=== PATIENT | male | born 1960 | race Caucasian/White ===

== ENCOUNTER 2019-10-27 14:07 | Observation (INO) ==
[2019-10-27] MEDS ORDERED: ALBUT/IPRATROP 3MG/0.5MG NEB 3 ML VIAL NEB STA ×2 (14:37→18:02)
--- NOTE | 2019-10-27 14:48 | Emergency Department Note ---
History of Present Illness General Chief complaint: Leg Injury/Pain Stated complaint: SORES ON LEGS Time Seen by Provider: 10/27/19 14:14 History of Present Illness This patient is a pleasant 59-year-old male who presents the emergency department ambulatory with his daughter for evaluation of lower extremity swe lling and wounds to the left leg. His symptoms have been going on for over a month. He denies any shortness of breath. No fever. The patient was reportedly treated at [facility] with oral and IV antibiotics over the last month. He has not seen an improvement. He has stopped wearing his compression stockings because of the wounds. He reports mild pain with weight bearing Home Medications Home Medications Medication Instructions Recorded Confirmed Type buprenorphine-naloxone [Suboxone] 1 dose SUBLINGUAL BID 06/19/18 10/27/19 History fenofibrate nanocrystallized 145 mg PO DAILY 06/19/18 10/27/19 History [Tricor] meloxicam [Mobic] 15 mg PO DAILY 06/19/18 10/27/19 History potassium chloride 10 meq PO DAILY 06/19/18 10/27/19 History venlafaxine [Effexor XR] 150 mg PO DAILY 06/19/18 10/27/19 History cyanocobalamin (vitamin B-12) 500 mcg PO DAILY 10/27/19 10/27/19 History [Vitamin B-12] lisinopril 10 mg PO DAILY 10/27/19 10/27/19 History albuterol sulfate 2 inh INHALATION Q4 PRN #1 ea 10/28/19 Rx doxycycline hyclate 100 mg PO BID #12 cap 10/28/19 Rx furosemide [Lasix] 20 mg PO DAILY #0 tab 10/28/19 10/27/19 Rx nicotine [Nicoderm CQ] 21 mg TRANSDERMAL QAM #14 ea 10/28/19 Rx prednisone 40 mg PO DAILY 5 Days #10 tab 10/28/19 Rx Allergies Allergy/AdvReac Type Severity Reaction Status Date / Time No Known Allergies Allergy Unverified 10/27/19 15:25 Past Med/Surg History Medical History (Updated 10/31/19 @ 06:22 by Yvette Block PA-C) Adrenal mass Current smoker Fatty liver Lower extremity edema No significant past medical history Obesity Sleep apnea Surgical History No significant past surgical history Family History Other No pertinent family history Social History Smoking Status: Current every day smoker Cigarettes Per Day: 20; Second Hand Exposure: Yes; Do You Dip or Chew Tobacco: No; Tobacco Cessation Education Requested by Patient: Yes Hx Alcohol Use: No Hx Substance Use: No Preferred Language: Telugu Communication Ability: Effective Market Consultant Required: No Beliefs That Will Affect Care: None Current Living Situation: Alone Other Information That Helps Us Care for You: No Feels Safe at Home: Yes Safety Concerns: Feels Safe At This Time Review of Systems A total of 10 systems reviewed and were otherwise negative Physical Exam Vital Signs Vital Signs - 24 hr 10/27/19 14:09 10/27/19 14:17 10/27/19 15:01 Temperature 36.4 C L Temperature Source Oral Pulse Rate 78 Pulse Rate from SpO2 Sensor Respiratory Rate 20 14 Respiratory Effort / Characteristics Spontaneous Blood Pressure 140/83 Blood Pressure Mean 102 Pulse Oximetry 88 L 86 L 96 Oxygen Delivery Method Room Air Room Air Nasal Cannula Nasal Cannula Oxygen Flow Rate 2 1 Sepsis Recent Fever Within 48 Hours No Sepsis New/Unexplained Change in Mental Status No Sepsis Action Taken by Nursing No Action Required 10/27/19 16:04 10/27/19 16:07 10/27/19 16:15 Temperature Temperature Source Pulse Rate 61 61 59 L Pulse Rate from SpO2 Sensor 61 64 58 L Respiratory Rate 15 15 11 L Respiratory Effort / Characteristics Blood Pressure 123/39 L Blood Pressure Mean 85 Pulse Oximetry 90 85 L 92 Oxygen Delivery Method Room Air Oxygen Flow Rate 2 2 Sepsis Recent Fever Within 48 Hours Sepsis New/Unexplained Change in Mental Status Sepsis Action Taken by Nursing 10/27/19 16:30 10/27/19 16:36 10/27/19 16:56 Temperature Temperature Source Pulse Rate 61 58 L 70 Pulse Rate from SpO2 Sensor 63 56 L 66 Respiratory Rate 16 19 12 Respiratory Effort / Characteristics Blood Pressure 119/75 Blood Pressure Mean 102 Pulse Oximetry 89 L 94 96 Oxygen Delivery Method Oxygen Flow Rate 2 2 2 Sepsis Recent Fever Within 48 Hours Sepsis New/Unexplained Change in Mental Status Sepsis Action Taken by Nursing 10/27/19 17:15 10/27/19 17:30 Temperature Temperature Source Pulse Rate 62 59 L Pulse Rate from SpO2 Sensor 61 62 Respiratory Rate 12 13 Respiratory Effort / Characteristics Blood Pressure 159/81 H Blood Pressure Mean 99 Pulse Oximetry 95 94 Oxygen Delivery Method Oxygen Flow Rate Sepsis Recent Fever Within 48 Hours Sepsis New/Unexplained Change in Mental Status Sepsis Action Taken by Nursing Constitutional WD/WN, vitals as above Eyes EOM intact bilaterally ENMT external ear and nose normal, oropharynx normal Neck trachea midline Respiratory Diffuse mild wheezing bilaterally. No tachypnea noted. Cardiovascular RRR, no murmur, no edema DP pulses +2 bilaterally. Gastrointestinal (Abdomen) normal bowel sounds, soft, nontender, no hepatosplenomegaly Musculoskeletal Bilateral lower extremity pitting edema +1 left greater than right. There is approximately 2 excoriations 3 cm in diameter noted to the anterior moreno. Good granulation tissue present. No active bleeding or purulent discharge. There is mild erythema surrounding the area. Skin no rashes, warm and dry Neurologic Alert and oriented x3. No focal motor deficits. Psychiatric Acting appropriately Course Course Patient was seen and examined Vital signs including blood pressure were reviewed medications list was verified with patient Labs were obtained, and a saline lock was established And EKG was performed and reviewed. An order was placed for continuous cardiac monitoring. The monitor shows a rate of 78 with normal sinus rhythm." The patient was put on oxygen. Imaging was performed and reviewed The case was discussed with my supervising physician who is in agreement with my plan. He was ordered another nebulizer treatment in addition to steroids. He was also ordered antibiotics. The patient was reassessed and resting comfortably. He denies any shortness of breath. His oxygen however remains low on room air. Ca se was discussed with case management in addition to the admitting team. They agreed to evaluate the patient for possible inpatient management. Consultations Consultation #1: [facility] hospitalist group Administered Medications Discontinued Medications Albuterol (Albut/Ipratrop 3mg/0.5mg Neb 3 Ml Vial) 3 ml NEB NOW STA Stop: 10/27/19 14:38 Last Admin: 10/27/19 14:56 Dose: 3 ml Documented by: [id number] Albuterol (Albut/Ipratrop 3mg/0.5mg Neb 3 Ml Vial) 3 ml NEB NOW STA Stop: 10/27/19 18:03 Last Admin: 10/27/19 18:16 Dose: 3 ml Documented by: [id number] Albuterol (Albut/Ipratrop 3mg/0.5mg Neb 3 Ml Vial) 3 ml NEB Q4R CINDY Stop: 11/26/19 22:59 Last Admin: 10/28/19 14:33 Dose: 3 ml Documented by: [id number] Admin: 10/28/19 11:37 Dose: 3 ml Documented by: [id number] Admin: 10/28/19 07:06 Dose: 3 ml Documented by: [id number] Admin: 10/28/19 03:02 Dose: 3 ml Documented by: [id number] Admin: 10/27/19 22:29 Dose: 3 ml Documented by: [id number] Buprenorphine/Naloxone (Buprenorphine/Naloxone 8/2 Mg Tab) 1 tab SL BID CINDY Stop: 11/26/19 20:59 Last Admin: 10/28/19 09:08 Dose: 1 tab Documented by: [id number] Admin: 10/27/19 21:55 Dose: 1 tab Documented by: [id number] Doxycycline Hyclate (Doxycycline Hyclate 100 Mg Cap) 100 mg PO BID CINDY Stop: 11/03/19 20:59 Last Admin: 10/28/19 09:10 Dose: 100 mg Documented by: [id number] Admin: 10/27/19 21:55 Dose: 100 mg Documented by: [id number] Enoxaparin Sodium (Enoxaparin Inj 40 Mg/0.4 Ml Syr) 40 mg SQ Q24H CINDY Stop: 11/26/19 20:59 Last Admin: 10/27/19 21:55 Dose: 40 mg Documented by: [id number] Fenofibrate (Fenofibrate Nanocrystallized 145 Mg Tablet) 145 mg PO DAILY CINDY Stop: 11/27/19 08:59 Last Admin: 10/28/19 09:08 Dose: 145 mg Documented by: [id number] Furosemide (Furosemide 40 Mg/4 Ml Vial) 40 mg IV NOW STA Stop: 10/27/19 20:46 Last Admin: 10/27/19 21:54 Dose: 40 mg Documented by: [id number] Furosemide (Furosemide 20 Mg Tab) 20 mg PO QAM CINDY Stop: 11/27/19 08:59 Last Admin: 10/28/19 09:09 Dose: 20 mg Documented by: [id number] Ceftriaxone Sodium (Rocephin) 2,000 mg in 70 mls @ 140 mls/hr IV NOW STA Stop: 08/29/20 18:18 Last Infusion: 10/27/19 20:28 Dose: 0 mls/hr Documented by: [id number] Admin: 10/27/19 18:33 Dose: 140 mls/hr Documented by: [id number] Sodium Chloride (Nss 1000ml) 1,000 mls @ 100 mls/hr IV .Q10H CINDY Stop: 11/26/19 20:44 Last Admin: 10/27/19 21:39 Dose: Not Given Documented by: [id number] Methylprednisolone 40 mg/ (Syringe) 0.64 mls @ 1.5 mls/min IV Q12H CINDY Stop: 11/27/19 05:59 Last Admin: 10/28/19 06:25 Dose: 1.5 mls/min Documented by: [id number] Ioversol (Optiray 320 125ml) 118 ml IV ONCE ONE Stop: 10/27/19 16:48 Last Admin: 10/27/19 16:47 Dose: 118 ml Documented by: [id number] Lisinopril (Lisinopril 10 Mg Tab) 10 mg PO DAILY CINDY Stop: 11/27/19 08:59 Last Admin: 10/28/19 09:10 Dose: 10 mg Documented by: [id number] Meloxicam (Meloxicam 7.5 Mg Tab) 15 mg PO DAILY CINDY Stop: 11/27/19 08:59 Last Admin: 10/28/19 09:09 Dose: 15 mg Documented by: [id number] Methylprednisolone (Methylprednisolone 40 Mg/Ml Vial) 40 mg IV NOW STA Stop: 10/27/19 18:01 Last Admin: 10/27/19 18:52 Dose: 40 mg Documented by: [id number] Miscellaneous (Remove Nicoderm Patch) 1 ea N/A DAILY@0859 CINDY Stop: 11/27/19 08:58 Last Admin: 10/28/19 09:11 Dose: 1 ea Documented by: [id number] Nicotine (Nicotine 21 Mg/24 Hr Tdsy) 21 mg TD QAM CINDY Stop: 11/26/19 20:44 Last Admin: 10/28/19 09:11 Dose: 21 mg Documented by: [id number] Admin: 10/27/19 21:54 Dose: 21 mg Documented by: [id number] Venlafaxine HCl (Venlafaxine Hcl Xr 150 Mg Capxr) 150 mg PO DAILY CINDY Stop: 11/27/19 08:59 Last Admin: 10/28/19 09:09 Dose: 150 mg Documented by: [id number] Medical Decision Making Medical Records Attestation: I reviewed the patient's medical records. Home Medications Current Medication List: was personally reviewed by me Laboratory Data Attestation: I reviewed the patient's lab results. Result diagrams: 10/28/19 06:38 10/28/19 06:38 Lab Results 10/27/19 10/27/19 10/27/19 Range/Units 15:18 15:18 15:18 WBC 6.43 (4.8-10.8) K/uL RBC 4.67 L (4.7-6.1) M/uL Hgb 13.9 L (14.0-18.0) g/dL Hct 42.0 (42-52) % MCV 89.9 (80-100) fL MCH 29.8 (25-34) pg MCHC 33.1 (32-36) g/dL RDW Std Deviation 45.3 (36.4-46.3) fL RDW Coeff of Ady 13.7 (11.5-14.5) % Plt Count 218 (130-400) K/uL MPV 10.7 H (7.4-10.4) fL Immature Gran % (Auto) 0.2 % Neut % (Auto) 55.3 % Lymph % (Auto) 33.7 % Sawyer % (Auto) 5.9 % Eos % (Auto) 4.4 % Baso % (Auto) 0.5 % Neut # (Auto) 3.56 (1.4-6.5) K/uL Lymph # (Auto) 2.17 (1.2-3.4) K/uL Sawyer # (Auto) 0.38 (0.11-0.59) K/uL Eos # (Auto) 0.28 (0-0.5) K/uL Baso # (Auto) 0.03 (0-0.2) K/uL Immature Gran # (Auto) 0.01 (0.00-0.02) K/uL D-Dimer 2020 H* (0-500) ug/L FEU Sodium 141 (136-145) mmol/L Potassium 4.3 (3.5-5.1) mmol/L Chloride 108 H (98-107) mmol/L Carbon Dioxide 30 (21-32) mmol/L Anion Gap 3.0 (3-11) BUN 27 H (7-18) mg/dl Creatinine 1.01 (0.6-1.4) mg/dl Est Cr Clr Drug Dosing 115.8 ml/min Est GFR ( Amer) 93.9 Est GFR (Non-Af Amer) 81.0 BUN/Creatinine Ratio 26.5 H (10-20) Glucose 104 H (70-99) mg/dl Calcium 9.3 (8.5-10.1) mg/dl Total Bilirubin 0.2 (0.2-1) mg/dl AST 17 (15-37) U/L ALT 28 (12-78) U/L Alkaline Phosphatase 42 L (45-117) U/L Troponin I < 0.015 (0-0.045) ng/ml NT-Pro-B Natriuret Pep 53 (0-900) pg/ml Total Protein 7.7 (6.4-8.2) gm/dl Albumin 3.4 (3.4-5.0) gm/dl Globulin 4.3 H (2.5-4.0) gm/dl Albumin/Globulin Ratio 0.8 L (0.9-2) Procalcitonin (0-0.5) ng/ml Hepatitis C Ab Screen (Neg) 10/27/19 10/27/19 Range/Units 15:18 15:18 WBC (4.8-10.8) K/uL RBC (4.7-6.1) M/uL Hgb (14.0-18.0) g/dL Hct (42-52) % MCV (80-100) fL MCH (25-34) pg MCHC (32-36) g/dL RDW Std Deviation (36.4-46.3) fL RDW Coeff of Ady (11.5-14.5) % Plt Count (130-400) K/uL MPV (7.4-10.4) fL Immature Gran % (Auto) % Neut % (Auto) % Lymph % (Auto) % Sawyer % (Auto) % Eos % (Auto) % Baso % (Auto) % Neut # (Auto) (1.4-6.5) K/uL Lymph # (Auto) (1.2-3.4) K/uL Sawyer # (Auto) (0.11-0.59) K/uL Eos # (Auto) (0-0.5) K/uL Baso # (Auto) (0-0.2) K/uL Immature Gran # (Auto) (0.00-0.02) K/uL D-Dimer (0-500) ug/L FEU Sodium (136-145) mmol/L Potassium (3.5-5.1) mmol/L Chloride (98-107) mmol/L Carbon Dioxide (21-32) mmol/L Anion Gap (3-11) BUN (7-18) mg/dl Creatinine (0.6-1.4) mg/dl Est Cr Clr Drug Dosing ml/min Est GFR ( Amer) Est GFR (Non-Af Amer) BUN/Creatinine Ratio (10-20) Glucose (70-99) mg/dl Calcium (8.5-10.1) mg/dl Total Bilirubin (0.2-1) mg/dl AST (15-37) U/L ALT (12-78) U/L Alkaline Phosphatase (45-117) U/L Troponin I (0-0.045) ng/ml NT-Pro-B Natriuret Pep (0-900) pg/ml Total Protein (6.4-8.2) gm/dl Albumin (3.4-5.0) gm/dl Globulin (2.5-4.0) gm/dl Albumin/Globulin Ratio (0.9-2) Procalcitonin < 0.05 (0-0.5) ng/ml Hepatitis C Ab Screen Neg (Neg) Imaging Data Attestation: I personally reviewed and interpreted this imaging study as follows: Radiologist's Impression: Chest x-ray Ultrasound lower extremities MDM Narrative This patient is a 59-year-old male who presents the emergency department with main complaint of lower extremity swelling in addition to wounds to the left low er extremity. On exam, it appears that he has a mild cellulitis. This was reportedly treated with not only oral antibiotics with IV antibiotics at [facility]. Unfortunately, I was unable to access these records. On exam, he was hypoxic. He was afebrile. The patient denied any shortness of breath, and reports a longstanding history of smoking. He was treated with a 2 DuoNebs, steroids antibiotic here in the emergency department. A chest x-ray was performed in addition to blood work. His d-dimer was elevated; therefore, CT scan was performed to rule out PE. This was negative. Unfortunately as the patient remained hypoxic, I did not feel comfortable sending him home as he is not on oxygen at home. He will be evaluated by the hospitalist team for possible inpatient management. Impression & Plan Hypoxia, Bilateral leg edema, Cellulitis Discharge Plan Visit Data Chief Complaint: Leg Injury/Pain Stated Complaint: SORES ON LEGS ED Provider: Frantz Edgar ED Midlevel Provider: Yvette Block Discharge Problem: Hypoxia, Bilateral leg edema, Cellulitis Patient Disposition: Admitted As Inpatient Condition: Fair Discharge Instructions Interventions: ED Discharge Assessment Last Done: 10/27/19 20:30
--- NOTE | 2019-10-27 15:06 | XRay Report ---
SINGLE VIEW CHEST CLINICAL HISTORY: Hypoxia. FINDINGS: 2 AP, portable, upright chest radiographs are compared to study dated 06/19/2018. The cardio mediastinal silhouette is unremarkable. Heart is enlarged. There is prominence of the pulmonary vascu lature. Atelectasis is noted at the lung bases. No large pleural effusion or pneumothorax is seen. Th e skeletal structures are osteopenic. The bony thorax is grossly intact. IMPRESSION: Cardiac enlargement with prominence of the pulmonary vasculature. Correlate clinically fo r evidence of mild congestive failure. ACT 112: Negative or not required by law. Electronically signed by: Wesley Pearl M.D. 10/27/2019 3:05 PM
[2019-10-27 15:32] LABS: Basophils # (auto) 0.03 K/uL (0-0.2); Basophils % (auto) 0.5 %; Eosinophils # (auto) 0.28 K/uL (0-0.5); Eosinophils % (auto) 4.4 %; Hemoglobin 13.9 g/dL (14.0-18.0); Immature Granulocytes # (auto) 0.01 K/uL (0.00-0.02); Immature Granulocytes % (auto) 0.2 %; Lymphocytes # (auto) 2.17 K/uL (1.2-3.4); Lymphocytes % (auto) 33.7 %; Mean Corpuscular Hemoglobin 29.8 pg (25-34); Mean Corpuscular Hgb Conc 33.1 g/dL (32-36); Mean Corpuscular Volume 89.9 fL (80-100); Mean Platelet Volume 10.7 fL (7.4-10.4); Monocytes # (auto) 0.38 K/uL (0.11-0.59); Monocytes % (auto) 5.9 %; Neutrophils # (auto) 3.56 K/uL (1.4-6.5); Neutrophils % (auto) 55.3 %; Platelet Count 218 K/uL (130-400); RDW Coefficient of Variation 13.7 % (11.5-14.5); RDW Standard Deviation 45.3 fL (36.4-46.3); Red Blood Count 4.67 M/uL (4.7-6.1); White Blood Count 6.43 K/uL (4.8-10.8)
[2019-10-27 15:48] LABS: Alanine Aminotransferase 28 U/L (12-78); Albumin Level 3.4 gm/dl (3.4-5.0); Aspartate Aminotransferase 17 U/L (15-37); BUN Creatinine Ratio 26.5 (10-20); Blood Urea Nitrogen 27 mg/dl (7-18); Calcium 9.3 mg/dl (8.5-10.1); Carbon Dioxide 30 mmol/L (21-32); Chloride 108 mmol/L (98-107); Creatinine Clr Calc Pharmacy 115.8 ml/min; D Dimer 2020 ug/L FEU (0-500); Est GFR (African American) 93.9; Glucose 104 mg/dl (70-99); Potassium 4.3 mmol/L (3.5-5.1); Sodium 141 mmol/L (136-145)
[2019-10-27 15:53] LABS: Albumin Globulin Ratio 0.8 (0.9-2); Alkaline Phosphatase 42 U/L (45-117); Bilirubin,Total 0.2 mg/dl (0.2-1); Globulin 4.3 gm/dl (2.5-4.0); NT Pro B Type Natriuretic Pept 53 pg/ml (0-900); Total Protein 7.7 gm/dl (6.4-8.2); Troponin I < 0.015 ng/ml (0-0.045)
--- NOTE | 2019-10-27 16:05 | Ultrasound Report ---
ULTRASOUND BILATERAL LOWER EXTREMITY VENOUS CLINICAL HISTORY: Lower extremity edema. COMPARISON STUDY: Bilateral lower extremity venous ultrasound dated 06/19/2018. TECHNIQUE: Real-time, grayscale, and color Doppler sonography of the deep veins of the right and left lower extremity was performed from the inguinal crease to the calf. Compression and augmentation wer e utilized. The examination is degraded by large body habitus FINDINGS: There is no sonographic evidence of deep venous thrombosis identified in the right or left lower extremity. The common femoral, superficial femoral, and popliteal veins are patent and normally compressible bilaterally. The greater saphenous vein and the profunda femoris vein at the junction w ith the common femoral vein are clear in both legs. The visualized calf veins are patent bilaterally. IMPRESSION: There is no sonographic evidence of deep venous thrombosis identified in the right or lef t lower extremity. ACT 112: Negative or not required by law. Electronically signed by: Wesley Pearl M.D. 10/27/2019 4:04 PM
[2019-10-27] MEDS ORDERED: OPTIRAY 320 125ml IV ONE (16:47)
--- NOTE | 2019-10-27 17:10 | CT Scan Report ---
CT ANGIOGRAM OF THE CHEST CLINICAL HISTORY: Hypoxia. COMPARISON STUDY: Chest x-ray dated 10/27/2019. TECHNIQUE: Following the IV administration of 118 cc of Optiray 320, CT angiogram of the chest was pe rformed from the upper abdomen to the thoracic inlet utilizing the pulmonary embolus protocol. Images are reviewed in the axial, sagittal, and coronal planes. 3-D MIPS images are created and assessed. I V contrast was administered without complication. A dose lowering technique was utilized adhering to the principles of ALARA. The examination is degraded by motion artifact. CT DOSE: 894.53 mGy.cm FINDINGS: Thyroid: Imaged portions of the thyroid gland are normal in size and heterogeneous in attenuation. Thoracic aorta: The thoracic aorta is normal in caliber and demonstrates standard 3-vessel arch anato my. No dissection is seen. Pulmonary vasculature: The pulmonary trunk is normal in caliber. There are no filling defects identif ied in main, lobar, or proximal segmental pulmonary branches to suggest pulmonary embolus. Evaluation of the peripheral branches is degraded by motion artifact and suboptimal contrast opacification. Heart: The heart is enlarged and without pericardial effusion. Lungs and pleural spaces: Evaluation of the lung parenchyma is modestly degraded by motion artifact. There is no airspace consolidation or pleural effusion. Dependent atelectasis is observed. The trache a and central airways are clear. Mild diffuse peribronchial thickening is observed. A 5 mm pleural-ba sed nodule in the right upper lobe seen on image #112 along the minor fissure. Mediastinum: There is no mediastinal lymphadenopathy. Paz: Clear. Axillae: There is no axillary lymphadenopathy. Upper abdomen: The liver appears enlarged and steatotic. There is a small hiatal hernia. There is lida cification of the left adrenal gland. There is an indeterminant 4.6 cm focus of infiltration identifi ed in the left retroperitoneal fat adjacent adrenal gland as seen on image #3. Skeletal structures: The skeletal structures are osteopenic. Degenerative change is noted in the thor acic spine and shoulders. No lytic or blastic bony lesions are seen. Soft tissues: Gynecomastia is noted. IMPRESSION: 1. There is no evidence of pulmonary embolus in the main, lobar, or proximal segmental pulmonary delia krupa. 2. There is no airspace consolidation or pleural effusion. 3. Mild diffuse peribronchial thickening suggests bronchitis/reactive airway disease. Clinical correl ation will be required. 4. There is a 5 mm focus of pleural-based nodularity in the right middle lobe along the minor fissure . This is of low suspicion and can be followed as per the Fleischner criteria if clinically warranted . 5. Cardiomegaly. 6. Hepatomegaly and hepatic steatosis. 7. There is a 4.6 focus of infiltration identified in the left retroperitoneal fat adjacent to the le ft adrenal gland. This is only partially visualized and may represent a fat-containing adrenal lesion such as a myelolipoma. This could be further assessed with a contrast-enhanced abdominal CT if clini sweetie warranted. 8. Additional findings as above. Please refer to below summary of Fleischner criteria recommendations for follow-up of incidental CT n odules (Obdulio Teran, Guidelines for management of small pulmonary nodules detected on CT scans: A sta tement from the Fleischner Society, Radiology 237: [phone].) SOLID NODULES Solitary nodule size: <6 mm * low risk patients: no follow-up needed * high risk patients: optional CT at 12 months Solitary nodule size: 6-8 mm * low risk patients: follow-up at 6-12 months, then consider further follow-up at 18-24 months * high risk patients: initial follow-up CT at 6-12 months and then at 18-24 months if no change Solitary nodule size: >8 mm * either low or high risk patients - consider follow-up CT at 3 months, and/or CT-PET, and/or biopsy Multiple nodules size: <6 mm * low risk patients: no routine follow-up * high risk patients: optional CT at 12 months Multiple nodules size: 6-8 mm * low risk patients: follow-up at 3-6 months, then consider further follow-up at 18-24 months * high risk patients: follow-up at 3-6 months, then at 18-24 months if no change Multiple nodules size: >8 mm * low risk patients: follow-up at 3-6 months, then consider further follow-up at 18-24 months * high risk patients: follow-up at 3-6 months, then at 18-24 months if no change Note: newly detected indeterminate nodule in persons 35 years of age or older. * low risk patients: minimal or absent history of smoking and/or other known risk factors * high risk patients: history of smoking or of other known risk factors (e.g. first degree relative with lung cancer, or exposure to asbestos, radon, uranium) * if a nodule up to 8 mm is partly solid or is ground glass further follow-up is required after 24 m onths to exclude possible slow growing adenocarcinoma (KENJI) SUBSOLID NODULES Solitary pure ground-glass nodule * nodule size <6 mm - no CT follow-up required * nodule size >=6 mm - follow-up CT at 6-12 months, then every 2 years until 5 years Solitary part-solid nodule * nodule size <6 mm - no CT follow-up required * nodule size >=6 mm - follow-up CT at 3-6 months. If unchanged, and solid component remains <6 mm, then annual follow-up for 5 years Multiple subsolid nodules * nodule size <6 mm - follow-up CT at 3-6 months, consider further follow-up at 2 and 4 years if sta ble * nodule size >=6 mm - follow-up CT at 3-6 months, subsequent management based on the most suspiciou s nodule(s) ACT 112: Negative or not required by law. Electronically signed by: Wesley Pearl M.D. 10/27/2019 5:09 PM
[2019-10-27] MEDS ORDERED: cefTRIAXone SODIUM 2,000 MG/70 ML BAG IV STA (17:49)
--- NOTE | 2019-10-27 18:09 | History & Physical Report ---
Date of Service October 27, 2019 Assessment & Plan (1) Acute respiratory failure with hypoxia: Patient looks have underlying COPD although not formally on any treatment he appears to be an exacerbation of COPD right now with hypoxia. Patient given supplemental oxygen and scheduled duo nebs steroids and antibiotics to treat for bronchitis as no pneumonia was seen on imaging studies Discussion the possibility of covid testing was had with the emergency department however the patient is not febrile he has negative imaging studies for changes of his lung singh he has no leukopenia or lymphopenia and subsequently we have held off on COVID testing at this time Patient is a chronic daily smoker he likely has some COPD he may have cor pulmonale or pulmonary hypertension which is also impacted by his obesity hypoventilation syndrome/obstructive sleep apnea. Patient states that he has had noninvasive positive pressure ventilation ordered for him in the past but sent the unit back these may be impacting his lower extremity swelling (2) Hypertension: Patient continues on his lisinopril 10 mg a day (3) Depression: Patient typically takes effects or 150 a day (4) Lower extremity edema: Is lower extremity edema may be cor pulmonale typically takes Lasix as needed this will be held at this time an echocardiogram will be undertaken to look for right heart pressures and pulmonary hypertension due to his edema and uncomfortable state the patient will be given IV Lasix on the day of admission and 20 mg of Lasix daily starting on 10/27 (5) DVT prophylaxis: Lovenox to be used for DVT prevention (6) Tobacco abuse: Tobacco cessation counseling will be ordered and a nicotine replacement patch will be offered (7) Lung nodule: Patient will be enrolled in lung nodule program (8) Morbid obesity: Patient's BMI is 47 and A1c will be checked for diabetes History of Present Illness Primary Care Provider: Leonel Wilkinson 59-year-old male who presents the emergency department ambulatory with his daughter for evaluation of lower extremity swelling and wounds to the left leg. His symptoms have been going on for over a month. He denies any shortness of breath. No fever. The patient was reportedly treated at [facility] with oral and IV antibiotics over the last month. He has not seen an improvement. He has stopped wearing his compression stockings because of the wounds. Patient was found to be progressively hypoxemic in the emergency department. He had a work-up including a CT angiogram and Doppler studies of his legs with did not show any VTE or pneumonia he likely may be suffering from a exacerbation of COPD at this time he was given steroids and nebulizers in the emergency department with only modest improvement. Patient states that in the past he is been diagnosed with sleep apnea but does not use any home noninvasive positive pressure ventilation unit has sent his unit back. He says he is been using his Lasix daily low as prescribed PRN he feels his lower extremities are much more swollen than it typically have been. He continues to be a chronic daily smoker. He will be offered a nicotine patch Allergies Allergy/AdvReac Type Severity Reaction Status Date / Time No Known Allergies Allergy Unverified 10/27/19 15:25 Home Medications Home Medications Medication Instructions Recorded Confirmed Type buprenorphine-naloxone [Suboxone] 1 dose SUBLINGUAL BID 06/19/18 10/27/19 History fenofibrate nanocrystallized 145 mg PO DAILY 06/19/18 10/27/19 History [Tricor] furosemide [Lasix] 20 mg PO DAILY PRN 06/19/18 10/27/19 History meloxicam [Mobic] 15 mg PO DAILY 06/19/18 10/27/19 History potassium chloride 10 meq PO DAILY 06/19/18 10/27/19 History venlafaxine [Effexor XR] 150 mg PO DAILY 06/19/18 10/27/19 History cyanocobalamin (vitamin B-12) 500 mcg PO DAILY 10/27/19 10/27/19 History [Vitamin B-12] lisinopril 10 mg PO DAILY 10/27/19 10/27/19 History Past Med/Surg History Medical History (Updated 10/27/19 @ 18:56 by Emory Tamez MD) Lower extremity edema No significant past medical history Sleep apnea Surgical History No significant past surgical history Family History Other No pertinent family history Social History Smoking Status: Current every day smoker Cigarettes Per Day: 20; Hx Alcohol Use: No Hx Substance Use: No Preferred Language: Upper Sorbian Communication Ability: Effective Beliefs That Will Affect Care: None Current Living Situation: Alone Other Information That Helps Us Care for You: No Feels Safe at Home: Yes Review of Systems Review of Systems: Mild to moderate respiratory distress and fatigue no headache, blurry or double vision no speech or swallowing issues no chest pain, pressure or palpitations Baseline has shortness of breath no coughing no abdominal pain, nausea or vomiting, diarrhea or constipation no dysuria, hematuria or frequency Patient has bilateral lower extremity swelling no back pain, CVA tenderness or radicular pain Nonhealing ulcerations left leg with erythema no focal signs of weakness or numbness or altered sensation no complaints or anxiety or depression. Physical Exam Physical Exam: The patient appeared obese and uncomfortable just sitting in the bed due to his body habitus Vital signs as documented. Head exam is normocephalic atraumatic no scleral icterus Neck is without JVD, thyromegaly, or carotid bruits. Lungs are poor air movement no focal loss no wheezes Cardiac exam, Rhythm is regular.. No murmurs, rubs or gallops. Abdominal exam reveals normal bowel sounds, soft non tender, no masses Extremities are 1-2+ edema bilaterally erythematous with two 3 cm open areas of his left distal leg pulses are intact bilaterally however Neurologic exam is alert and oriented, no focal loss of strength or sensation Skin is with open areas of his left leg with erythema bilaterally s Psychologically is without concerns for anxiety or depression. Results & Data Results & Data ([facility]) Vital Signs (Past 12 Hours) Vital Signs Temp Pulse Resp BP Pulse Ox 10/27/19 17:30 59 L 13 159/81 H 94 10/27/19 17:15 62 12 95 10/27/19 16:56 70 12 96 10/27/19 16:36 58 L 19 119/75 94 10/27/19 16:30 61 16 89 L 10/27/19 16:15 59 L 11 L 92 10/27/19 16:07 61 15 85 L 10/27/19 16:04 61 15 123/39 L 90 10/27/19 15:01 14 96 10/27/19 14:17 86 L 10/27/19 14:09 97.5 F L 78 20 140/[address] angiogram 10/27/2019no PE diffuse peribronchial thickening suggestive bronchitis, 5 mm pleural-based nodularity right middle lobe recommend follow-up hepatomegaly and steatosis nondescript abnormality adjacent to the left adrenal gland recommend repeat CT with contrast if indicated Chest x-ray 10/27/2019cardiac enlargement prominent vasculature Venous Dopplers lower extremities 10/27/2019 no sonographic evidence of DVT in either lower extremity PG Care Time/CCT Total # of Minutes Spent Total Time Spent with Patient: Total time spent is greater than 50% in coordination of care (as documented) at patient's floor/unit and/or counseling patient: Coding Level of Care Code 46455 Initial Inpt Care Lvl 3 Diagnoses Acute respiratory failure with hypoxia J96.01 Hypertension I10 Depression F32.9 Lower extremity edema R60.0 DVT prophylaxis Z29.9 Tobacco abuse Z72.0 Lung nodule R91.1 Morbid obesity E66.01
[2019-10-27] MEDS ORDERED: MoRPHine SULFATE 2 MG/ML CARP IV PRN (20:45)
[2019-10-27] MEDS ORDERED: ONDANSETRON INJ 2 MG/ML 2 ML VIAL IV PRN (20:45)
[2019-10-27] MEDS ORDERED: ALUMINUM/MAGNESIUM SUSP 30 ML UDC PO PRN (20:45)
[2019-10-27] MEDS ORDERED: ACETAMINOPHEN 325 MG TAB PO PRN (20:45)
[2019-10-27] MEDS ORDERED: SODIUM CHLORIDE 0.9% 1000ML 1,000 ML IV SCH (20:45)
[2019-10-27] MEDS ORDERED: FUROSEMIDE 40 MG/4 ML VIAL IV STA (20:45)
[2019-10-27] MEDS ORDERED: ENOXAPARIN INJ 40 MG/0.4 ML SYR SQ SCH (21:00)
[2019-10-27] MEDS: NICOTINE 21 MG/24 HR TDSY TD SCH (21:54)
[2019-10-27] MEDS: DOXYCYCLINE HYCLATE 100 MG CAP PO SCH (21:55)
[2019-10-27] MEDS: BUPRENORPHINE/NALOXONE 8/2 MG TAB SL SCH (21:55)
[2019-10-27] MEDS: ALBUT/IPRATROP 3MG/0.5MG NEB 3 ML VIAL NEB SCH (22:29)
[2019-10-28] MEDS: ALBUT/IPRATROP 3MG/0.5MG NEB 3 ML VIAL NEB SCH ×4 (03:02→14:33)
[2019-10-28] MEDS ORDERED: methylPREDNISolone 40 MG in SYRINGE 0 ML IV SCH (06:00)
[2019-10-28 07:42] LABS: Hemoglobin 13.9 g/dL (14.0-18.0); Mean Corpuscular Hemoglobin 29.1 pg (25-34); Mean Corpuscular Hgb Conc 32.3 g/dL (32-36); Mean Platelet Volume 11.3 fL (7.4-10.4); Platelet Count 233 K/uL (130-400); RDW Coefficient of Variation 13.7 % (11.5-14.5); RDW Standard Deviation 45.2 fL (36.4-46.3); Red Blood Count 4.78 M/uL (4.7-6.1); White Blood Count 7.84 K/uL (4.8-10.8)
[2019-10-28 08:23] LABS: BUN Creatinine Ratio 27.8 (10-20); Calcium 8.9 mg/dl (8.5-10.1); Creatinine Clr Calc Pharmacy 130.2 ml/min; Est GFR (African American) 108.5; Est GFR (Non-African American) 93.6; Potassium 4.4 mmol/L (3.5-5.1)
[2019-10-28] MEDS ORDERED: VENLAFAXINE HCL XR 150 MG CAPXR PO SCH (09:00)
[2019-10-28] MEDS ORDERED: FENOFIBRATE NANOCRYSTALLIZED 145 MG TABLET PO SCH (09:00)
[2019-10-28] MEDS ORDERED: FUROSEMIDE 20 MG TAB PO SCH (09:00)
[2019-10-28] MEDS ORDERED: lisinopriL 10 MG TAB PO SCH (09:00)
[2019-10-28] MEDS ORDERED: MELOXICAM 7.5 MG TAB PO SCH (09:00)
[2019-10-28] MEDS: BUPRENORPHINE/NALOXONE 8/2 MG TAB SL SCH (09:08)
[2019-10-28] MEDS: DOXYCYCLINE HYCLATE 100 MG CAP PO SCH (09:10)
[2019-10-28] MEDS: NICOTINE 21 MG/24 HR TDSY TD SCH (09:11)
--- NOTE | 2019-10-28 14:22 | Discharge Summary ---
Date of Service October 28, 2019 Admission HPI Per Admitting Provider 59-year-old male who presents the emergency department ambulatory with his daughter for evaluation of lower extremity swelling and wounds to the left leg. His symptoms have been going on for over a month. He denies any shortness of breath. No fever. The patient was reportedly treated at [facility] with oral and IV antibiotics over the last month. He has not seen an improvement. He has stopped wearing his compression stockings because of the wounds. Patient was found to be progressively hypoxemic in the emergency department. He had a work-up including a CT angiogram and Doppler studies of his legs with did not show any VTE or pneumonia he likely may be suffering from a exacerbation of COPD at this time he was given steroids and nebulizers in the emergency department with only modest improvement. Patient states that in the past he is been diagnosed with sleep apnea but does not use any home noninvasive positive pressure ventilation unit has sent his unit back. He says he is been using his Lasix daily low as prescribed PRN he feels his lower extremities are much more swollen than it typically have been. He continues to be a chronic daily smoker. He will be offered a nicotine patch Principal Diagnosis Lower extremity edema, acute hypoxic respiratory failure, resolved lower extremity cellulitis Discharge Exam Constitutional WD/WN, vitals as above + morbidly obese; not in distress Eyes + anicteric sclerae Neck trachea midline, no thyromegaly Respiratory normal respiratory effort, lungs clear to auscultation Cardiovascular Rate/Rhythm: regular rate and regular rhythm Heart Sounds: no murmur Extremities: + edema (2+ lower extremity pitting edema to the knees bilat) Chest (Breasts) Chest: normal inspection of chest Gastrointestinal (Abdomen) normal bowel sounds, soft, nontender, no hepatosplenomegaly Musculoskeletal Extremities: no cyanosis and no clubbing Skin + wound (scabs 5 cm x 2 on left anterior leg,no erythema or drainage) Neurologic moves all extremities and awake; no focal motor deficits Psychiatric A+Ox3, euthymic affect Lymphatic no lymphedema Discharge Data Allergies Allergy/AdvReac Type Severity Reaction Status Date / Time No Known Allergies Allergy Unverified 10/27/19 15:25 Consultations 10/27/19 20:45 Consult Case Management - Discharge Planning Routine Ordered Studies 10/27/19 14:37 US venous doppler LE BI Stat 10/27/19 16:17 CT angio chest PE protocol Stat CXR ECHO Hospital Course (1) Acute respiratory failure with hypoxia: Patient looks to have underlying COPD although not formally on any treatment he appears to be an exacerbation of COPD here with hypoxia upon admission. Patient given supplemental oxygen and scheduled duo nebs steroids and antibiotics to treat for bronchitis with doxycycline as no pneumonia was seen on imaging studies COVID testing was negative CTA chest without PNA but with peribronchial thickening, neg for PE ECHO with preserved EF LE edema likely from venous stasis He was treated with steroids, doxycycline, O2, and bronchodilator nebs He was significantly improved and was not having hypoxia even with ambulation on day of discharge Patient is a chronic daily smoker he likely has some COPD he may have cor pulmonale or pulmonary hypertension which is also impacted by his obesity hypoventilation syndrome/obstructive sleep apnea. Patient states that he has had noninvasive positive pressure ventilation ordered for him in the past but sent the unit back these may be impacting his lower extremity swelling Needs close f/u with PCP after discharge -continue albuterol HFA prn -prednisone taper on discharge finish out 7 day course of doxycycline (2) Hypertension: Patient continues on his lisinopril 10 mg a day controlled (3) Depression: continue Effexor 150 a day (4) Lower extremity edema: continue lasix 20mg daily but change to prn ECHO with preserved EF advised compression stockings, low sodium diet, elevation of legs above heart, and weight loss (5) Tobacco abuse: Tobacco cessation counseling was given and a nicotine replacement patch was offered (6) Lung nodule: f/u with PCP needs repeat CT scan as outpt, discussed with pt and daughter (7) Morbid obesity: Patient's BMI is 47 counseled on weight loss (8) Current smoker: counseled on cessation as above (9) Adrenal mass: incidentally noted on CT scan, left adrenal gland f/u as outpt with PCP-discussed with pt and daughter (10) Fatty liver: noted on CT advised weight loss (11) Leg wound, left: appears to be healing, no further cellulitis advised compression of legs as above for venous stasis continue to keep covered if opens up again -f/u PCP (12) DVT prophylaxis: Lovenox to be used for DVT prevention Dispo-stable for dc to home Total Time Total Time Spent Total Time Spent (In Minutes): 40 min Total Time Includes: Examination of the Patient, Discharge Planning and Medication Reconciliation Discharge Plan Discharge Items Patient Disposition: Home - Self-Care Reason For Visit: ACUTE HYPOXIC RESPIRATORY FAILURE Discharge Diagnosis: Acute respiratory failure with hypoxia, suspect acute bronchitis, lower extremity edema and wound Condition on Discharge: Fair Activity: Resume your previous activity Non-emergency contact: Primary Care Provider Call non-emergency contact if: you have any medication questions and your symptoms worsen Follow-up/Referrals: Leonel Wilkinson [Primary Care Provider] - (Follow up within 1 week.) Diet: Carb Consistent or DM2 and Low Sodium (2gm) Addtl Attending Provider Instructions: You were admitted for low oxygen levels which are probably due to your history of smoking and bronchitis. This greatly improved with giving you IV steroids and breathing treatments. Please finish out a course of prednisone and doxycycline as prescribed. You can use the albuterol inhaler as needed for shortness of breath, cough, or wheezing. A CT scan of your chest showed inflammation of the bronchioles which is likely from a bronchitis and smoking. You did not have any blood clots or pneumonia seen. Your legs are swollen--> ultrasound was performed which showed no blood clots. You should eat foods low in sodium and elevate your legs as much as possible. Keep the wound covered with a dry dressing until healed. Talk to your PCP about getting compression stockings that fit you properly. Continue taking the lasix diuretic pill once daily. An ultrasound of your heart showed normal function of your heart and you do not have congestive heart failure. Incidentally, you were found to have a growth around your left adrenal gland that should be followed up by your PCP. Also, you have a fatty liver on CT scan which can lead to liver failure if not corrected. You should work on weight loss and eating a low carbohydrate diet. You also were found to have a small nodule or growth in the lung on CT scan that should be followed with a repeat CT scan of the chest in 3-6 months ordered by your PCP. Most importantly, PLEASE QUIT SMOKING IMMEDIATELY. Pending Studies at Discharge: Yes (Blood culture) Stand-Alone Forms: My [facility], Smoking Cessation Medications and DC Order Prescriptions: New doxycycline hyclate 100 mg Capsule 100 mg PO BID Qty: 12 RF: 0 nicotine [Nicoderm CQ] 21 mg/24 hr Patch 24 Hour 21 mg transdermal QAM Qty: 14 RF: 0 albuterol sulfate 90 mcg/actuation aerosol powdr breath activated 2 inh inhalation Q4 PRN (Reason: shortness of breath or wheezing) Qty: 1 RF: 0 Continued cyanocobalamin (vitamin B-12) [Vitamin B-12] 500 mcg Tablet 500 mcg PO DAILY RF: 0 lisinopril 10 mg tablet 10 mg PO DAILY RF: 0 potassium chloride 10 mEq capsule, extended release 10 meq PO DAILY RF: 0 meloxicam [Mobic] 15 mg tablet 15 mg PO DAILY RF: 0 venlafaxine [Effexor XR] 150 mg capsule,extended release 24hr 150 mg PO DAILY RF: 0 fenofibrate nanocrystallized [Tricor] 145 mg tablet 145 mg PO DAILY RF: 0 buprenorphine-naloxone [Suboxone] 8-2 mg film 1 dose sublingual BID RF: 0 Changed furosemide [Lasix] 20 mg tablet 20 mg PO DAILY Qty: 0 RF: 0 Discharge Orders: Discharge Order (Routine); Ordered 10/28/19 Ordered By: Reanna Fontenot Admission Data Admit Date/Time: 10/27/19 19:13 Attending Provider: Reanna Fontenot Admit Provider: Emory Tamez Primary Care Provider: Leonel Wilkinson Other Interventions: Discharge Summary Assessment (RN) Last Done: 10/28/19 14:30 Coding Level of Care Code 17916 OBS Care - Discharge Diagnoses Acute respiratory failure with hypoxia J96.01 Hypertension I10 Depression F32.9 Lower extremity edema R60.0 Tobacco abuse Z72.0 Lung nodule R91.1 Morbid obesity E66.01 Current smoker F17.200 Adrenal mass E27.8 Fatty liver K76.0 Leg wound, left S81.802A DVT prophylaxis Z29.9
[2019-10-29 05:51] LABS: Estimated Average Glucose 143 mg/dl; Hemoglobin A1C 6.6 % (4.5-5.6)
== END 2019-10-28 15:46 | disposition home or self-care (01) ==
LOC: ED 14:07 → SUATTDRO 19:13 → 2S 19:13 → INTOOBSV 19:13 → 2S 20:30